=== PATIENT | female | born 1995 | race Caucasian/White ===

== ENCOUNTER 2017-04-17 23:57 | Emergency (ER) | payer OTHER ==
--- NOTE | 2017-04-18 00:28 | ED Physician Documentation ---
Headache - HISTORIAN Historian: patient - HPI Stated Complaint: HEADACHE Chief Complaint: Headache Additional Information: headache since this morning, three headaches this week. gets 2 headaches a month. takes OTC headache medicine, doesnt know name. occipital and some frontal Onset: days ago Timing: gradual New Gradual Onset: No Exposure To: none Severity: mild Quality: similar to previous Associated Symptoms: denies: fever, chills, problems with vision, vomiting Preceding Symptoms: denies: visual disturbance, scotoma Exacerbated By: denies: light, noise, movement, position Further Comments: no Last known Well Code/Unknown Code: Unknown - ROS NEURO/PSYCH: denies: confusion, anxiety EYES/ENT: denies: sore throat, difficulty swallowing CVS/RESP: none GI/: denies: abdominal pain MS/SKIN/LYMPH: denies: muscle aches, back pain all systems neg except as marked: Yes - PAST HX Medical History: no pertinent history Surgical History: no surgical history Allergies/Adverse Reactions: Allergies Allergy/AdvReac Type Severity Reaction Status Date / Time No Known Allergies Allergy Verified 04/18/17 00:18 Home Medications: Ambulatory Orders Medication Instructions Recorded Citalopram Hydrobromide 20 mg PO DAILY 04/18/17 [Citalopram HBr] - SOCIAL HX Smoking History: non-smoker Alcohol Use: none Drug Use: none - Family HX Family History: none - VITAL SIGNS Vital Signs: Vital Signs Temp Pulse Resp BP Pulse Ox 98.5 F 88 16 137/87 98 04/17/17 23:57 04/17/17 23:57 04/17/17 23:57 04/17/17 23:57 04/17/17 23:57 - REVIEWED ASSESSMENTS Nursing Assessment Reviewed: Yes Vitals Reviewed: Yes Progress - Progress Progress: high flow O2 had no change, ED Results Lab/Radiology - Orders Orders: ED Orders Category Date Time Status Oxygen Now Oxygen 04/18/17 00:30 Ordered Headache Physical Exam - EXAM General Appearance: no acute distress, alert EENT: no facial swelling, eyes nml inspection Neck: normal inspection, supple. No: carotid bruit Respiratory: no resp distress CVS: reg. rate & rhythm Abdomen: non-tender Skin: color nml, no rash Extremitites: non-tender - NEURO/PSYCH Higher Functions: alert, oriented x3, nml speech, mood/affect nml Cranial: no evidence of acute CVA Discharge Clincal Impression: Headache, tension-type Qualifiers: Headache chronicity pattern: acute headache Intractability: intractable Qualified Code(s): G44.201 - Tension-type headache, unspecified, intractable Referrals: Jasbir Olguin MD [Primary Care Provider] - 2 Days Condition: Stable Disposition: 01 HOME, SELF-CARE Decision to Admit: NO Date of Decison to Admit: 04/18/17 Decision Time: 00:39
[2017-04-18] MEDS ORDERED: hydrOXYzine HCL 50 MG/ML VIAL IM PRN (00:36)
[2017-04-18] MEDS ORDERED: KETOROLAC TROMETHAMINE 30 MG/1ML VIAL IM ONE (00:36)
[2017-04-18] MEDS ORDERED: HYDROcodone /APAP 5/325 1 EACH TABLET PO ONE (00:38)
[2017-04-18] MEDS ORDERED: hydrOXYzine HCL 50 MG/ML VIAL IM ONE (00:46)
[2017-04-18 01:06] VITALS: BP 129/79
== END 2017-04-18 00:58 | disposition home or self-care (01) ==
LOC: ED 23:57
DX: G44.201 Tension-type headache, unspecified, intractable (principal)
CPT/HCPCS: A9270; J1885; J3410; 96372; 99283